=== PATIENT | male | born 1950 | race African-American/Black ===

== ENCOUNTER 2016-11-22 12:55 | Emergency (ER) | payer BC ==
[~2016-11-22 12:55] MED LIST: CADUET PO; CEFT5 PO; LABETALOL300 MG OR; SPIRO25 PO; TUSSIONEX 5 ML S5 ML PO/LIQ
== END 2016-11-22 14:55 | disposition home or self-care (01) ==
LOC: ER 12:55
DX: S20.212A Contusion of left front wall of thorax, initial encounter (principal); R42 Dizziness and giddiness; I10 Essential (primary) hypertension; Z79.899 Other long term (current) drug therapy; W19.XXXA Unspecified fall, initial encounter
CPT/HCPCS: 70450; 71020; 99284